=== PATIENT | male | born 1990 | race Two or more races ===

== ENCOUNTER 2019-09-24 19:15 | Emergency (ER) | payer OTHER ==
[~2019-09-24] VITALS: Ht 190.5 cm; Wt 90.7 kg
--- NOTE | 2019-09-24 20:31 | NUR ---
PT CAME TO ER BED 7 C/O LEFT THIGH PAIN. PT STATES THAT YESTERDAY HE NOTICED A BUMP THAT WAS FILLED WITH PUS. PT STATES THAT HE POPPED IT AND WENT TO SLEEP. PT WOKE UP TO A LARGE BUMP THAT WAS FILLED WITH PUS. BUMP LOCATED POSTERIOR LEFT THIGH. WARM TO THE TOUCH. PAIN UPON PALPATION. AAOX4. VSS. WILL MONITOR ACCORDINGLY.
[2019-09-24] MEDS ORDERED: IBUPROFEN 400 MG TABLET ONE (20:54)
[2019-09-24] MEDS ORDERED: CEPHALEXIN MONOHYDRATE 500 MG CAPSULE PO ONE ×2 (20:54→21:00)
[2019-09-24] MEDS ORDERED: SULFAMETH/TRIMETH 800/160 MG 1 UDTAB TABLET ONE (20:54)
[2019-09-24] MEDS ORDERED: SULFAMETH/TRIMETH 800/160 MG 1 UDTAB TABLET PO ONE (21:00)
[2019-09-24] MEDS ORDERED: IBUPROFEN 400 MG TABLET PO ONE (21:00)
[2019-09-24 21:14] VITALS: BP 138/74
--- NOTE | 2019-09-24 21:14 | NUR ---
Patient discharged to home in stable condition. Written and verbal after care instructions given. Patient verbalizes understanding of instruction and RX. Pt ambulated with steady gait. VSS.
== END 2019-09-24 21:19 | disposition home or self-care (01) ==
LOC: ER 19:15
DX: L02.416 Cutaneous abscess of left lower limb (principal); L03.116 Cellulitis of left lower limb; F17.200 Nicotine dependence, unspecified, uncomplicated